=== PATIENT | female | born 1995 | race Caucasian/White ===

== ENCOUNTER 2023-10-24 20:38 | Emergency (ER) | payer OTHER, SELFPAY ==
[2023-10-24 20:39] VITALS: BMI 26.8
[2023-10-24 20:43] VITALS: BP 148/110
[2023-10-24 20:57] LABS: % Basophils 0.6 % (0-2); % Eosinophils 0.8 % (0-6); % Immature Granulocytes 0.3 % (0-0.5); % Lymphocytes 35.3 % (20.5-51.1); Absolute Basophils 0.1 10^3/uL (0-0.2); Absolute Eosinophils 0.1 10^3/uL (0-0.7); Absolute Lymphocytes 4.1 10^3/uL (1.2-3.4); Absolute Monocytes 0.8 10^3/uL (0.1-0.6); Absolute Neutrophils 6.5 10^3/uL (1.4-6.5); Hemoglobin 13.1 g/dL (12.0-16.0); Mean Corp Hgb Conc. 35.4 g/dL (33.0-37.0); Mean Corpuscular Hgb 29.3 pg (27.0-31.0); Mean Corpuscular Volume 82.8 fL (81.0-99.0); Mean Platelet Volume 9.5 fL (7.4-10.4); Nucleated Red Blood Cells % 0 %; Platelet Count 382 10^3/uL (130-400); Red Blood Cell Count 4.47 10^6/uL (4.20-5.40); White Blood Cell Count 11.5 10^3/uL (4.8-10.8)
[2023-10-24 21:00] VITALS: BP 120/94
[2023-10-24 21:08] VITALS: BP 120/94
[2023-10-24 21:15] LABS: AST (SGOT) 25 U/L (14-36); Albumin 5.2 g/dl (3.5-5.0); Alkaline Phosphatase 77 U/L (38-126); Blood Urea Nitrogen 9 mg/dl (7-17); Calcium 10.7 mg/dl (8.4-10.2); Carbon Dioxide 25 mmol/L (22-30); Chloride 105 mmol/L (98-107); Glucose 122 mg/dl (70-99); Potassium 4.9 mmol/L (3.5-5.1); Sodium 142 mmol/L (135-145); Total Bilirubin 0.9 mg/dl (0.2-1.3); eGFR > 60.00
[2023-10-24 21:22] LABS: Troponin I < 0.012 ng/ml
[2023-10-24 21:25] LABS: Total Protein 8.1 g/dl (6.3-8.2)
--- NOTE | 2023-10-24 21:29 | ED.GENMED ---
History of Present Illness
General
Chief Complaint: Numbness
Time Seen by Provider: 10/24/23 21:21
History of Present Illness
History of Present Illness:
HPI: Around 8 PM this evening while driving, the patient developed chest discomfort. She had some degree of shortness of breath and describes 'a full-blown panic attack'. This was associated with right upper extremity numbness. She has a headache
but 'always gets headaches'. She has a history of a cerebral aneurysm repair from many years ago.
EXAM:
GENERAL: Well appearing in no distress
HEENT: Moist oral mucosa
CARDIOVASCULAR: No murmurs, normal heart rate, regular rhythm, mild chest wall tenderness along the right sternal border
PULMONARY: No respiratory distress, breath sounds are clear and equal
ABDOMEN: Soft with no peritoneal signs, no tenderness
NEUROLOGIC: Excellent strength all extremities, no coordination deficits, excellent sensation in all extremities
PSYCHIATRIC: Appropriate mental status, normal insight and judgement
EXTREMITIES: Nontender, no edema, moves all extremities equally
SKIN: No rash, no lesions
TIME OF INITIAL ENCOUNTER: 10 PM
NUMBER AND COMPLEXITY OF PROBLEMS ADDRESSED AT THE ENCOUNTER
� Chronic conditions affecting care: History of cerebral aneurysm clipping ([place])
� Acute Exacerbation and/or Progression of Chronic Illness: This is an acute problem
� Differential Diagnosis includes: Musculoskeletal chest wall pain, ACS unlikely, anxiety attack
AMOUNT AND/OR COMPLEXITY OF DATA TO BE REVIEWED AND ANALYZED
� I performed an independent evaluation of and my interpretation is:
EKG: Sinus 104, nonspecific ST abnormality, normal intervals
CT: CAT scan of the brain shows no acute abnormality
X-rays: I personally viewed chest x-ray and see no acute abnormality
Laboratory Studies: White count 11.5, hemoglobin normal, chemistries including troponin x 2 normal, D-dimer negative
Other:
� Review of other/old records: CTA showed no sign of cerebral aneurysm on 06/22/2022
� Clinical information was obtained by an independent historian: I spoke to at bedside
� Prescriptions/Medications Considered but not given: The patient declines any analgesia
� Further testing considered but not performed:
RISK OF COMPLICATIONS AND/OR MORBIDITY OR MORTALITY OF PATIENT MANAGEMENT
� Social determinants of health affecting care: Lives at home with
� Discussion with other providers:
� Escalation of care including admission/observation vs risk of discharge considered: Although patient is only 28 years old, 2 troponins have been obtained as she does report a family history of premature coronary disease. Her
brother at the age of 39 had an MT (she reports he was very unhealthy). D-dimer also obtained which was negative. On reassessment at 11:30 PM, the patient appears very comfortable.
Phy Exam
Physical Exam
Physical Exam:
See HPI
Course
Orders/Labs/Results
Orders:
Orders
10/24/23 20:48
Electrocardiogram (*1) Urgent
Reason for Study: Chest Pain
CT Head W/o Iv Contrast Urgent
Comment:
Reason For Exam: headache
EKG- Treatment ONCE
10/24/23 20:53
Complete Blood Count/With Diff Urgent
Comprehensive Metabolic Panel Urgent
Troponin I Urgent
10/24/23 22:43
D-Dimer Urgent
Troponin I Urgent
10/24/23 22:52
CR Chest - 2 Views Urgent
Comment:
Reason For Exam: R pain
Abnormal Lab Results
10/24/23
20:53
WBC 11.5 H 10^3/uL
(4.8-10.8)
Absolute Lymphs (auto) 4.1 H 10^3/uL
(1.2-3.4)
Absolute Monos (auto) 0.8 H 10^3/uL
(0.1-0.6)
Glucose 122 H mg/dl
(70-99)
Calcium 10.7 H mg/dl
(8.4-10.2)
Albumin 5.2 H g/dl
(3.5-5.0)
10/24/23 20:53
10/24/23 20:53
Vital Signs
Initial and Last Documented VS:
Initial Vital Signs
Temp Pulse Resp BP Pulse Ox
98.3 F 131 18 148/110 97
10/24/23 20:43 10/24/23 20:43 10/24/23 20:43 10/24/23 20:43 10/24/23 20:43
Last Documented Vital Signs
Temp Pulse Resp BP Pulse Ox
98.3 F 88 24 128/91 97
10/24/23 20:43 10/24/23 23:00 10/24/23 23:00 10/24/23 23:00 10/24/23 23:00
*Critical Care Note
Total Time (30-74mins, 75-104mins- exclusive of procedures): Not Applicable
ED Attending Note
-
Portions of this chart may have been created with voice recognition software.� Occasional wrong word or��sound alike� substitutions may have occurred due to the inherent limitations of voice recognition software.
Discharge Plan
Departure
Patient Disposition: Home (Routine Discharge)
Date of Disposition: 10/24/23
Time of Disposition: 23:34
Patient with high blood pressure during this ER visit?: Yes
Discharge Problem:
Chest pain
Instructions: Chest Pain DCA Follow Up, BLOOD PRESSURE
Prescriptions:
No Action
topiramate [Topamax] 25 mg tablet
See Rx Instructions .ROUTE .COMPLEX Qty: 30 0RF
Rx Instructions:
25 mg orally before bed for 7 days then 50 mg orally before bed ongoing
Referrals:
Shelia Taylor DO [Family Provider] -
Baron Telles MD [Active] -
Activity Restrictions/Additional Instructions:
Please follow-up with your primary care doctor. I recommend 3-4 kjih-[id number] ibuprofen (Motrin) every 8 hours with food for a few days. Return here if worse. I have also given the contact information for a local quality controller, Dr. Telles.
Interventions
Interventions:
*Risk Screen - Suicide Last Done: 10/24/23 20:43
*General Assessment Last Done: 10/24/23 20:43
*Neglect/Abuse Screening Last Done: 10/24/23 20:43
ED- Neurological Assessment Last Done: 10/24/23 21:21
Discharge Date and Time
Print Language: CITIZEN OF [place]
[2023-10-24 21:54] LABS: ALT (SGPT) 18 U/L (0-35)
[2023-10-24 22:00] VITALS: BP 131/89
[2023-10-24 23:00] VITALS: BP 128/91
[2023-10-24 23:13] LABS: Troponin I < 0.012 ng/ml
== END 2023-10-24 23:56 | disposition home or self-care (01) ==
LOC: EMR 20:38
PROVIDERS: Emergency Medicine; EMERGENCY PHYSICIAN Emergency Medicine; FAMILY PHYSICIAN Family Medicine
DX: R07.89 Other chest pain (principal); R06.02 Shortness of breath; R20.0 Anesthesia of skin; R51.9 Headache, unspecified; R03.0 Elevated blood-pressure reading, without diagnosis of hypertension; F41.0 Panic disorder [episodic paroxysmal anxiety]; Z82.49 Family history of ischemic heart disease and other diseases of the circulatory system
CPT/HCPCS: 99284; 70450; 71046; 80053; 84484; 85025; 85379; 93005

== ENCOUNTER 2023-12-19 13:37 | Emergency (ER) | payer OTHER, SELFPAY ==
[2023-12-19 13:38] VITALS: BP 145/101
--- NOTE | 2023-12-19 13:53 | ED.GENMED ---
History of Present Illness
General
Chief Complaint: Headache
Source: patient
Exam Limitations: none
Time Seen by Provider: 12/19/23 13:44
History of Present Illness
History of Present Illness:
28-year-old female with history of aneurysmal clipping in the right side of the brain that was done 4 years ago presents with progressively worsening headache to the right side of her head since 3 days ago. She notes associated dizziness. The pain
is now severe. She denies weakness or numbness to the arms or legs. She denies loss of vision. She denies double vision. She does feel a painful lump on the right side of her head in the m[place] region. No injury. No neck pain no fever. No
other complaints
Phy Exam
Physical Exam
Physical Exam:
General: Well-appearing female no acute respiratory distress
HEENT: Normocephalic atraumatic patient
Heart: RRR, no mumurs
Lungs: CTA bilaterally
Neurologic exam: Alert and oriented x 3. Pupils equal round reactive to light good strength and sensation to the upper and lower extremities normal gait.
Course
Orders/Labs/Results
Orders:
Orders
12/19/23 13:56
CT Head W/o Iv Contrast Urgent
Comment:
Reason For Exam: headache
12/19/23 14:05
Complete Blood Count/With Diff Urgent
Comprehensive Metabolic Panel Urgent
HCG, Serum Qualitative Screen Urgent
Comment: ADD ON
Sed Rate [Erythrocyte Sed Rate] Urgent
12/19/23 14:14
Add On- LAB Urgent
Tests Added?: hcg
Abnormal Lab Results
12/19/23
14:05
RBC 4.07 L 10^6/uL
(4.20-5.40)
Hct 35.1 L %
(37.0-47.0)
ESR 23 H mm/hour
(0-20)
Glucose 113 H mg/dl
(70-99)
12/19/23 14:05
12/19/23 14:05
Vital Signs
Initial and Last Documented VS:
Initial Vital Signs
Temp Pulse Resp BP Pulse Ox
98.5 F 108 20 145/101 99
12/19/23 13:38 12/19/23 13:38 12/19/23 13:38 12/19/23 13:38 12/19/23 13:38
Last Documented Vital Signs
Temp Pulse Resp BP Pulse Ox
98.5 F 89 23 114/88 99
12/19/23 13:38 12/19/23 16:46 12/19/23 14:39 12/19/23 16:35 12/19/23 16:36
MDM/Problems Addressed
Differential Diagnosis Includes:
Headache, severe with history of it was have a aneurysmal clipping 3 years ago. Patient was here a year ago for similar symptoms. CT angiogram of the head then was negative. Will check for acute bleeding with CT head. Question migraine. No
fever to suggest infectious source
*Critical Care Note
Total Time (30-74mins, 75-104mins- exclusive of procedures): Not Applicable
Update Note
Update Note:
CT was negative for acute finding. Patient reevaluated. Appears stable. Sed rate is only 23. Patient describes a hard sensation or palpable lump to the right side of her forehead. She does admit to recent weight loss. No abnormal findings on
CT. She will follow-up with her neurologist. Offered migraine cocktail however she declined
ED Attending Note
-
Portions of this chart may have been created with voice recognition software.� Occasional wrong word or��sound alike� substitutions may have occurred due to the inherent limitations of voice recognition software.
Discharge Plan
Departure
Patient Disposition: Home (Routine Discharge)
Date of Disposition: 12/19/23
Time of Disposition: 16:30
Patient with high blood pressure during this ER visit?: No
Discharge Problem:
Headache
Instructions: Headache, Adult (DC)
Prescriptions:
No Action
topiramate [Topamax] 25 mg tablet
See Rx Instructions .ROUTE .COMPLEX Qty: 30 0RF
Rx Instructions:
25 mg orally before bed for 7 days then 50 mg orally before bed ongoing
Referrals:
Shelia Taylor DO [Family Provider] -
Activity Restrictions/Additional Instructions:
Continue your current medications. Return here for worsening symptoms otherwise follow-up with your neurologist as planned
Interventions
Interventions:
*Risk Screen - Suicide Last Done: 12/19/23 14:10
*General Assessment Last Done: 12/19/23 14:10
*Neglect/Abuse Screening Last Done: 12/19/23 14:10
ED- Fall Risk Assessment Last Done: 12/19/23 14:10
*ED COVID-19 Vaccine History Last Done: 12/19/23 14:10
*Nursing Disposition Last Done: 12/19/23 16:46
ED- Neurological Assessment Last Done: 12/19/23 14:10
Discharge Date and Time
Discharge Date/Time: 12/19/23 16:48
Print Language: DIVEHI
[2023-12-19 14:04] VITALS: BMI 26.7
[2023-12-19 14:05] VITALS: BP 115/84
[2023-12-19 14:29] LABS: % Basophils 0.8 % (0-2); % Eosinophils 1.3 % (0-6); % Immature Granulocytes 0.3 % (0-0.5); % Lymphocytes 26.6 % (20.5-51.1); % Monocytes 6.6 % (1.7-9.3); % Neutrophils 64.4 % (42.2-75.2); Absolute Basophils 0.1 10^3/uL (0-0.2); Absolute Eosinophils 0.1 10^3/uL (0-0.7); Absolute Lymphocytes 2.1 10^3/uL (1.2-3.4); Absolute Monocytes 0.5 10^3/uL (0.1-0.6); Absolute Neutrophils 5.1 10^3/uL (1.4-6.5); Hematocrit 35.1 % (37.0-47.0); Hemoglobin 12.3 g/dL (12.0-16.0); Mean Corpuscular Hgb 30.2 pg (27.0-31.0); Mean Corpuscular Volume 86.2 fL (81.0-99.0); Mean Platelet Volume 10.1 fL (7.4-10.4); Nucleated Red Blood Cells % 0 %; Platelet Count 345 10^3/uL (130-400); Red Blood Cell Count 4.07 10^6/uL (4.20-5.40); Red Cell Dist. Width 12.8 % (11.5-14.5); White Blood Cell Count 7.9 10^3/uL (4.8-10.8)
[2023-12-19 14:36] LABS: ALT (SGPT) 16 U/L (0-35); AST (SGOT) 18 U/L (14-36); Albumin 4.4 g/dl (3.5-5.0); Alkaline Phosphatase 71 U/L (38-126); Blood Urea Nitrogen 16 mg/dl (7-17); Calcium 9.7 mg/dl (8.4-10.2); Carbon Dioxide 30 mmol/L (22-30); Chloride 104 mmol/L (98-107); Estimated Creatinine Clearance 111 ml/min; Glucose 113 mg/dl (70-99); Sodium 144 mmol/L (135-145); Total Bilirubin 0.4 mg/dl (0.2-1.3); Total Protein 6.9 g/dl (6.3-8.2); eGFR > 60.00
[2023-12-19 14:43] LABS: HCG, Serum Qualitative Screen Negative
[2023-12-19 14:53] LABS: Erythrocyte Sed Rate 23 mm/hour (0-20)
[2023-12-19 16:35] VITALS: BP 114/88
== END 2023-12-19 16:48 | disposition home or self-care (01) ==
LOC: EMR 13:37
PROVIDERS: Physician Assistant; EMERGENCY PHYSICIAN Emergency Medicine; FAMILY PHYSICIAN Family Medicine
DX: R51.9 Headache, unspecified (principal); R42 Dizziness and giddiness
CPT/HCPCS: 99284; 70450; 80053; 84703; 85025; 85652

== ENCOUNTER 2024-02-09 09:18 | Emergency (ER) | payer OTHER, SELFPAY ==
[2024-02-09 09:20] VITALS: BP 152/110
--- NOTE | 2024-02-09 09:36 | EDRN ---
Shazia GRECO at the pts bedside
[2024-02-09 09:38] VITALS: BP 125/71; BMI 24.8
--- NOTE | 2024-02-09 09:42 | ED.GENMED ---
History of Present Illness
General
Chief Complaint: Crisis Evaluation
Source: patient
Time Seen by Provider: 02/09/24 09:31
History of Present Illness
History of Present Illness:
28yoF with a history of ADHD presenting for psychiatric evaluation. Patient reports feeling overwhelmed recently due to a culmination of things. She has not been sleeping well over the past few days. She started to have suicidal thoughts yesterday
which were 'really bad.' The triage note documents a plan although she denies a plan on my assessment. She did not feel safe at home and decided to come to the ED for evaluation. Patient reports a prior history of suicide attempts. She has never had
inpatient psychiatric treatment before. She is currently taking Vyvanse, Wellbutrin, and medical marijuana. Her only other medical problem is a prior brain aneurysm that was clipped several years ago.
Phy Exam
General Physical Exam
General Presentation: well appearing
General age: appears stated age
General Skin: warm and dry
General Habitus: normal
General Mental: alert
ENT Exam
ENT Exam: normocephalic
Pulmonary Exam
Pulmonary Exam: no respiratory distress
Neurological Exam
Neurological Exam: alert
[place] Coma Scale
Eye Opening: Spontaneous
Verbal Response: Oriented
Motor Response: Obeys Commands
GCS Total Score: 15
Skin Exam
Skin Exam: normal color and warm/dry
Psychiatric Exam
Psychiatric Exam: depressed and suicidal
Course
Orders/Labs/Results
Orders:
Orders
02/09/24 09:25
1:1 Observation - Suicide/ Violent Behavior As Directed
Crisis Consult Urgent
Reason for Consult: suicidal ideation
02/09/24 09:41
Test Result ONCE
02/09/24 11:48
Fentanyl, Urine Urgent
HCG, Urine Qualitative Screen Urgent
Date Specimen was Collected: 02/09/24
Time Specimen was Collected: 09:42
Urine Drug Abuse Screen Urgent
Date Specimen was Collected: 02/09/24
Time Specimen was Collected: 09:42
02/09/24 12:00
Bupropion(24Hr)Extended Releas [WELLBUTRIN XL (24 hour extended release)] 300 mg PO DAILY
Abnormal Lab Results
02/09/24
11:48
Ur Amphetamines Screen Positive H
(Negative)
U Marijuana (THC) Screen Positive H
(Negative)
Vital Signs
Initial and Last Documented VS:
Initial Vital Signs
Temp Pulse Resp BP Pulse Ox
98.2 F 107 18 152/110 99
02/09/24 09:20 02/09/24 09:20 02/09/24 09:20 02/09/24 09:20 02/09/24 09:20
Last Documented Vital Signs
Temp Pulse Resp BP Pulse Ox
98.5 F 82 16 125/71 99
02/09/24 09:38 02/09/24 09:38 02/09/24 09:38 02/09/24 09:38 02/09/24 09:38
MDM/Problems Addressed
Differential Diagnosis Includes:
28yoF here for depression and suicidal ideations. Hx of prior suicide attempts. She denies a plan but does not feel safe being at home. VSS. No signs of psychosis on exam. Patient medically cleared for crisis evaluation.
*Critical Care Note
Total Time (30-74mins, 75-104mins- exclusive of procedures): Not Applicable
Update Note
Update Note:
Patient evaluated by crisis and decided to sign in voluntarily. She was accepted at [facility] and will be picked up at 4:30pm today. Patient signed at shift change awaiting transport.
ED Attending Note
-
Portions of this chart may have been created with voice recognition software.� Occasional wrong word or��sound alike� substitutions may have occurred due to the inherent limitations of voice recognition software.
Discharge Plan
Departure
Patient Disposition: Psych Facility
Date of Disposition: 02/09/24
Time of Disposition: 14:02
Discharge Problem:
Suicidal ideations
Prescriptions:
No Action
bupropion HCl [Wellbutrin XL] 300 mg Tablet Extended Release 24 Hr
300 mg PO DAILY
lisdexamfetamine [Vyvanse] 50 mg Capsule
50 mg PO DAILY
Referrals:
UNKNOWN - PT NOT,INTERVIEWE [Family Provider] -
Interventions
Interventions:
*Risk Screen - Suicide Last Done: 02/09/24 09:20
*General Assessment Last Done: 02/09/24 09:20
*Neglect/Abuse Screening Last Done: 02/09/24 09:38
ED- Fall Risk Assessment Last Done: 02/09/24 09:38
*ED COVID-19 Vaccine History Last Done: 02/09/24 09:20
ED-Psychological Assessment Last Done: 02/09/24 09:38
Discharge Date and Time
Print Language: CZECH
[2024-02-09] MEDS: WELLBUTRIN XL (24 hour extended release) 300 MG PO (12:08)
[2024-02-09 12:15] LABS: HCG, Urine Qualitative Screen Negative
[2024-02-09 12:26] LABS: Amphetamines Positive (Negative); Barbiturates Negative (Negative); Benzodiazepines Negative (Negative); Buprenorphine Negative (Negative); Cocaine Negative (Negative); Marijuana Positive (Negative); Methadone Negative (Negative); Methamphetamines Negative (Negative); Opiates Negative (Negative); Phencyclidine Negative (Negative); Tricyclic Antidepressants Negative (Negative)
[2024-02-09 12:45] LABS: Fentanyl, Urine Negative (Negative)
[2024-02-09 16:37] VITALS: BP 136/104
== END 2024-02-09 16:41 ==
LOC: EMR 09:18
PROVIDERS: Physician Assistant; EMERGENCY PHYSICIAN Emergency Medicine
DX: R45.851 Suicidal ideations (principal); F32.A Depression, unspecified; Z86.79 Personal history of other diseases of the circulatory system; Z91.51 Personal history of suicidal behavior
CPT/HCPCS: 99282; 80306; 80307; 81025

== ENCOUNTER 2024-09-07 08:34 | Emergency (ER) | payer OTHER, SELFPAY ==
[2024-09-07 08:39] VITALS: BP 124/86
--- NOTE | 2024-09-07 08:59 | ED.GENMED ---
History of Present Illness
General
Chief Complaint: Fainting Sensation
Source: patient
Exam Limitations: none
Time Seen by Provider: 09/07/24 08:44
History of Present Illness
History of Present Illness:
See MDM
Past History
Past History
ED Past Medical History: Psychiatric
ED Past Surgical History: None
Social History
Tobacco: Non-smoker
Alcohol: None
Phy Exam
Physical Exam
Physical Exam:
See MDM
Course
Orders/Labs/Results
Orders:
Orders
09/07/24 08:58
Electrocardiogram (*1) Urgent
Reason for Study: Syncope
EKG- Treatment ONCE
09/07/24 09:26
Complete Blood Count/With Diff Urgent
Comprehensive Metabolic Panel Urgent
Magnesium Urgent
Abnormal Lab Results
09/07/24
09:26
Absolute Monos (auto) 0.8 H 10^3/uL
(0.1-0.6)
Monocytes % 11.4 H %
(1.7-9.3)
Chloride 112 H mmol/L
(98-107)
09/07/24 09:26
09/07/24 09:26
Vital Signs
Initial and Last Documented VS:
Initial Vital Signs
Temp Pulse Resp BP Pulse Ox
98.0 F 97 16 124/86 98
09/07/24 08:39 09/07/24 08:39 09/07/24 08:39 09/07/24 08:39 09/07/24 08:39
Last Documented Vital Signs
Temp Pulse Resp BP Pulse Ox
97.6 F 72 20 136/81 98
09/07/24 09:47 09/07/24 09:47 09/07/24 09:47 09/07/24 09:47 09/07/24 09:47
MDM/Problems Addressed
Differential Diagnosis Includes:
HPI and MDM Narrative:
29-year-old female presenting with multiple complaints. Patient does acknowledge that she came in to get checked out just to make sure that she is 'okay'. Over the past 2 months, patient has had these intermittent episodes where she feels sweaty
and generalized body aching. Last night, patient felt hot and sweaty and felt like she was going to faint. She does acknowledge that she does not think she actually passed out. Due to her ongoing discomfort, she came in for evaluation. She
complains of right-sided neck pain and dental pain. In regard to the neck pain, exam is consistent with likely right trapezial spasm. There is no midline tenderness. No tenderness to carotid palpation. She has no meningismus.
I did question whether this could be mental health related or not in regards to stress and anxiety. She does acknowledge that she has a longstanding history of mental health issues and believes that she is in tune with her ongoing symptoms and
believes that this is unrelated. Regardless, on my exam, patient is extremely well-appearing and nontoxic. Will obtain screening EKG and basic blood work
In regards to the dental issue, she does appear to have an ingrown tooth below her right lower incisor. She states this is already followed by a dentist and they are planning on removing it
Physical exam
General: Well appearing and non-toxic
HEENT: protecting airway. Ingrown tooth to right lower incisor. No surrounding edema or abscess
Neck: supple. Mild spasm to right trapezius. No meningismus. No midline tenderness. No tenderness right carotid
CV: No evidence of cyanosis. Regular rate and rhythm
Resp: No accessory muscle use. Lungs clear
Abd: Non-distended
Extremities: No deformities
Neuro: alert
Psych: Mildly anxious
Skin: Intact
Problems Addressed including Acute and Chronic Conditions affecting care:
1. Near syncope
Acuity: acute
Prognosis: stable
Details: Will obtain screening EKG and blood work.
2. Neck pain
Acuity: acute
Prognosis: stable
Details: Exam consistent with likely spasm
Updates
On reassessment, patient remains well-appearing nontoxic. Blood work without clinically relevant abnormalities. EKG normal sinus rhythm. Discussed the possibility of cardiac arrhythmia outpatient Holter monitor. Patient feels comfortable going
home
Differential Diagnosis (but not limited to): Near syncope, palpitations, cardiac arrhythmia, anxiety
Testing considered: Neck x-ray but there is no midline tenderness
Drug therapy (if applicable): OTC meds, please see d/c instruction regarding Rx drugs
Amount and/or Complexity of Data Reviewed
Clinical info obtained from: Patient
External data reviewed: N/A
Labs I independently reviewed (but not limited to): White blood cell count normal
Radiology: N/A
Pulse Ox: not hypoxic
EKG independently reviewed: Sinus rhythm, normal axis, no STEMI
Rn Case Management: Sinus rhythm
Critical Care: N/A
Risk of Complication:
Social Determinants of health: Good social support
Discussed with other providers: N/A
Escalation of Care includes Admit/Obs: After being observed in the Emergency Department, pt stable for discharge.
Occasional wrong word or 'sound a like' substitutions may have occurred due to the inherent limitations of voice recognition software. Read the chart carefully and recognize, using context, where substitutions have occurred.
*Critical Care Note
Total Time (30-74mins, 75-104mins- exclusive of procedures): Not Applicable
ED Attending Note
-
Portions of this chart may have been created with voice recognition software.� Occasional wrong word or��sound alike� substitutions may have occurred due to the inherent limitations of voice recognition software.
Discharge Plan
Departure
Patient Disposition: Home (Routine Discharge)
Date of Disposition: 09/07/24
Time of Disposition: 10:42
Patient with high blood pressure during this ER visit?: No
Discharge Problem:
Near syncope
Instructions: Near Fainting (DC)
Prescriptions:
No Action
dextroamphetamine-amphetamine [Adderall] 20 mg Tablet
20 mg PO BID
gabapentin 100 mg Capsule
100 mg PO TID
hydroxyzine HCl 10 mg Tablet
20 mg PO QID PRN (Reason: anxiety)
topiramate 50 mg Tablet
50 mg PO DAILY
Referrals:
Shelia Taylor DO [Family Provider, Family Practice]
Activity Restrictions/Additional Instructions:
Please return for any worsening symptoms.
You may return at any time if you have further concerns.
Please follow up with your doctor at the first available appointment, preferably this week. Please discuss the utility of an outpatient Holter monitor.
Thank you for choosing [facility].
Interventions
Interventions:
*Risk Screen - Suicide Last Done: 09/07/24 08:39
*General Assessment Last Done: 09/07/24 09:47
*Neglect/Abuse Screening Last Done: 09/07/24 08:39
*ED- Fall Risk Assessment Last Done: 09/07/24 09:47
*ED COVID-19 Vaccine History Last Done: 09/07/24 09:47
*Nursing Disposition Last Done: 09/07/24 09:49
ED- Cardiac Assessment Last Done: 09/07/24 09:47
ED- Neurological Assessment Last Done: 09/07/24 09:47
Discharge Date and Time
Print Language: [place]
[2024-09-07 09:22] VITALS: BMI 23.0
[2024-09-07 09:32] VITALS: BP 109/72
[2024-09-07 09:41] LABS: % Basophils 0.9 % (0-2); % Eosinophils 1.4 % (0-6); % Immature Granulocytes 0.3 % (0-0.5); % Lymphocytes 29.3 % (20.5-51.1); % Monocytes 11.4 % (1.7-9.3); % Neutrophils 56.7 % (42.2-75.2); Absolute Basophils 0.1 10^3/uL (0-0.2); Absolute Eosinophils 0.1 10^3/uL (0-0.7); Absolute Lymphocytes 2.1 10^3/uL (1.2-3.4); Absolute Monocytes 0.8 10^3/uL (0.1-0.6); Hematocrit 37.5 % (37.0-47.0); Hemoglobin 13.1 g/dL (12.0-16.0); Mean Corp Hgb Conc. 34.9 g/dL (33.0-37.0); Mean Corpuscular Hgb 30.4 pg (27.0-31.0); Mean Platelet Volume 9.8 fL (7.4-10.4); Nucleated Red Blood Cells % 0 %; Platelet Count 274 10^3/uL (130-400); Red Blood Cell Count 4.31 10^6/uL (4.20-5.40); Red Cell Dist. Width 12.4 % (11.5-14.5)
[2024-09-07 09:47] VITALS: BP 136/81
[2024-09-07 10:00] VITALS: BP 111/78
[2024-09-07 10:11] LABS: ALT (SGPT) 13 U/L (0-35); AST (SGOT) 15 U/L (14-36); Albumin 4.6 g/dl (3.5-5.0); Alkaline Phosphatase 42 U/L (38-126); Calcium 9.8 mg/dl (8.4-10.2); Carbon Dioxide 24 mmol/L (22-30); Chloride 112 mmol/L (98-107); Glucose 84 mg/dl (70-99); Magnesium 2.3 mg/dl (1.6-2.3); Sodium 144 mmol/L (135-145); Total Bilirubin 0.5 mg/dl (0.2-1.3); Total Protein 7.2 g/dl (6.3-8.2)
[2024-09-07 10:21] LABS: Blood Urea Nitrogen 11 mg/dl (7-17); Estimated Creatinine Clearance 114 ml/min; eGFR > 60.00
== END 2024-09-07 11:03 | disposition home or self-care (01) ==
LOC: EMR 08:34
PROVIDERS: EMERGENCY PHYSICIAN Student in an Organized Health Care Education/Training Program; FAMILY PHYSICIAN Family Medicine
DX: R55 Syncope and collapse (principal); M54.2 Cervicalgia
CPT/HCPCS: 99284; 80053; 83735; 85025; 93005